=== PATIENT | male | born 1985 | race American Indian/Alaskan Native ===

== ENCOUNTER 2021-03-23 10:46 | Emergency (ER) | payer SELFPAY ==
--- NOTE | 2021-03-23 12:08 | Emergency Department Report ---
ED ENT HPI - General Chief complaint: Skin/Abscess/Foreign Body Stated complaint: HARD MASS ON TOP OF LIP FROM SHAVING Time Seen by Provider: 03/23/21 11:55 Source: patient Mode of arrival: Ambulatory Limitations: No Limitations - History of Present Illness Initial comments: Pt presents to ED with complaints of swelling and pain to right upper lip just anterior right nare. He states it started about 1 week ago and has been getting worse. He states its also causing his teeth in upper jaw to hurt. He admits tht he did shave his mustache about a week ago and he states that he thought he may have had nicked himself initially. He denies any redness, drainage, fever or chills or any other symptoms at this time. MD complaint: other (upper lip swelling, painful) -: Gradual, week(s) (1) - Related Data Previous Rx's Medication Instructions Recorded Last Taken Type Acetaminophen/Codeine [Tylenol 1 tab PO Q4HR PRN #12 tablet 03/23/21 Unknown Rx /Codeine # 3 tab] Clindamycin [Clindamycin CAP] 300 mg PO Q6H #40 capsule 03/23/21 Unknown Rx Ketorolac [Toradol] 10 mg PO Q6H PRN #20 tablet 03/23/21 Unknown Rx Allergies Allergy/AdvReac Type Severity Reaction Status Date / Time No Known Allergies Allergy Unverified 03/23/21 11:02 ED Dental HPI - General Chief complaint: Skin/Abscess/Foreign Body Stated complaint: HARD MASS ON TOP OF LIP FROM SHAVING Time Seen by Provider: 03/23/21 11:55 Source: patient Mode of arrival: Ambulatory Limitations: No Limitations - Related Data Previous Rx's Medication Instructions Recorded Last Taken Type Acetaminophen/Codeine [Tylenol 1 tab PO Q4HR PRN #12 tablet 03/23/21 Unknown Rx /Codeine # 3 tab] Clindamycin [Clindamycin CAP] 300 mg PO Q6H #40 capsule 03/23/21 Unknown Rx Ketorolac [Toradol] 10 mg PO Q6H PRN #20 tablet 03/23/21 Unknown Rx Allergies Allergy/AdvReac Type Severity Reaction Status Date / Time No Known Allergies Allergy Unverified 03/23/21 11:02 ED Review of Systems ROS: Stated complaint: HARD MASS ON TOP OF LIP FROM SHAVING Other details as noted in HPI Comment: All other systems reviewed and negative Constitutional: denies: chills, fever ENT: dental pain, other (right upper lip pain and swelling ). denies: ear pain, throat pain Respiratory: denies: cough, shortness of breath, wheezing Cardiovascular: denies: chest pain, palpitations Neurological: denies: headache, weakness, numbness, paresthesias, confusion, abnormal gait, vertigo Psychiatric: denies: anxiety, depression, auditory hallucinations, visual hallucinations, homicidal thoughts, suicidal thoughts Hematological/Lymphatic: denies: easy bleeding, easy bruising, swollen glands ED Past Medical Hx - Past Medical History Previous Medical History?: No - Surgical History Past Surgical History?: No - Medications Home Medications: Home Medications Medication Instructions Recorded Confirmed Last Taken Type Acetaminophen/Codeine [Tylenol 1 tab PO Q4HR PRN #12 tablet 03/23/21 Unknown Rx /Codeine # 3 tab] Clindamycin [Clindamycin CAP] 300 mg PO Q6H #40 capsule 03/23/21 Unknown Rx Ketorolac [Toradol] 10 mg PO Q6H PRN #20 tablet 03/23/21 Unknown Rx ED Physical Exam - General Limitations: No Limitations General appearance: alert, in no apparent distress - Head Head exam: Present: atraumatic, normocephalic, normal inspection - Eye Eye exam: Present: normal appearance, PERRL Pupils: Present: normal accommodation - ENT ENT exam: Present: normal orophraynx, mucous membranes moist, other (there is mild swelling to upper lip just anterior to opening right near with ttp which is coming from a small dental abscess associated with right central incisor. there is ttp to incisior. There is a jennings cap over the incisor. No facial cellulitis) - Expanded ENT Exam Expanded Mouth exam: Present: normal external inspection. Absent: drooling, trismus, muffled voice, tongue normal, tongue elevation, laceration Throat exam: Positive: normal inspection - Neck Neck exam: Present: normal inspection, full ROM. Absent: meningismus ED Course Vital Signs 03/23/21 03/23/21 11:02 12:33 Temperature 98.4 F Pulse Rate 85 82 Respiratory 20 18 Rate Blood Pressure 122/91 [Right] O2 Sat by Pulse 100 99 Oximetry Critical care attestation.: If time is entered above; I have spent that time in minutes in the direct care of this critically ill patient, excluding procedure time. ED Disposition Clinical Impression: Dental abscess Disposition: DC- TO HOME OR SELFCARE Is pt being admited?: No Does the pt Need Aspirin: No Condition: Stable Instructions: Dental Abscess, [id number] Additional Instructions: I recommend that you take the clindamycin as prescribed. Take the Tylenol threes in the hospital as prescribed to help with pain. Recommend warm compresses as discussed or you can continue doing the warm salt water rinses. Most importantly I recommend that you follow-up with the dentist given on the dental list. Return to the ER if your symptoms changes or worsens in any way. Prescriptions: Clindamycin [Clindamycin CAP] 300 mg PO Q6H #40 capsule Ketorolac [Toradol] 10 mg PO Q6H PRN #20 tablet PRN Reason: Pain Acetaminophen/Codeine [Tylenol /Codeine # 3 tab] 1 tab PO Q4HR PRN #12 tablet PRN Reason: Pain Referrals: PRIMARY CARE, [Primary Care Provider] - 3-5 Days Forms: Work/School Release Form(ED) Time of Disposition: 12:06
== END 2021-03-23 12:33 | disposition home or self-care (01) ==
LOC: ED 10:46
CPT/HCPCS: 99282